=== PATIENT | female | born 1995 | race Caucasian/White ===

== ENCOUNTER 2018-03-06 08:33 | Emergency (ER) | payer OTHER ==
[~2018-03-06] VITALS: Ht 152.4 cm; Wt 68.0 kg
[2018-03-06] MEDS ORDERED: ULTRAM 50MG TAB50 MG PO (10:23)
[2018-03-06] MEDS ORDERED: IBUPROFEN 600600 M1 PO (10:23)
[2018-03-06 11:06] VITALS: BP 177/78
== END 2018-03-06 11:00 | disposition home or self-care (01) ==
LOC: ER 08:33
DX: S63.602A Unspecified sprain of left thumb, initial encounter (principal); W00.0XXA Fall on same level due to ice and snow, initial encounter; Y93.89 Activity, other specified; Y92.89 Other specified places as the place of occurrence of the external cause; Y99.8 Other external cause status